=== PATIENT | male | born 1995 | race Caucasian/White ===

== ENCOUNTER 2016-12-03 15:52 | Emergency (ER) | payer OTHER ==
[~2016-12-03] VITALS: Ht 172.7 cm; Wt 87.3 kg
[2016-12-03 16:01] VITALS: TEMP 36.6; Ht 172.7 cm; Wt 87.3 kg
[2016-12-03] MEDS ORDERED: PROPARACAINE HCL 0.5% OP SOLN 15 ML BTL ONE (17:13)
[2016-12-03 17:47] VITALS: BP 144/71; PULSE 85; O2SAT 98
--- NOTE | 2016-12-04 00:54 | EMERGENCY ROOM VISIT NOTE ---
History First contact with patient: 16:29 Chief Complaint: EYE ASSESSMENT Stated Complaint: METAL SHARD IN EYE History of Present Illness The patient is a 21 year old male who presents to the Emergency Room with complaints of a possible foreign body in the left eye. The patient was pressure washing at work around noon time when he noticed the discomfort. The eye was irrigated with persistent discomfort. He denies any significant photophobia or blurred vision, and rates his discomfort a 6 out of 10. Tetanus immunization is up-to-date. Review of Systems 10 system review was performed and was negative except for pertinent positives and negatives as indicated in history of present illness Past Medical/Surgical History Medical Problems: (1) No significant past medical history Surgical Problems: (1) No history of previous surgery Family History Unremarkable Social History Smoking Status: Never Smoker Alcohol Use: occasionally Marital Status: single Occupation Status: employed Current/Historical Medications No Active Prescriptions or Reported Meds Allergies Coded Allergies: No Known Allergies (Unverified , 12/03/16) Physical Exam Vital Signs Date Time Temp Pulse Resp B/P (MAP) Pulse Ox O2 Delivery O2 Flow Rate FiO2 12/03/16 17:47 85 18 144/71 98 Room Air 12/03/16 16:01 36.6 81 16 147/80 96 Room Air Right Eye Acuity: 20/10 Left Eye Acuity: 20/20 Pain Rating (0-10): 2.0 Physical Exam CONSTITUTIONAL: Healthy and well nourished. Alert and oriented X 3 with positive affect. Patient does not appear in any acute distress. HEENT: Normocephalic, atraumatic. Pupils equal, round and reactive. Examination of the left eye shows mild conjunctival injection. No mucopurulent or bloody drainage noted. No soft tissue injury of the face or eyelids. NECK: Full active range of motion without discomfort. INTEGUMENTARY: No rash or other significant dermatologic conditions noted. NEUROLOGIC: Cranial nerves II-XII grossly intact. No focal neurologic deficits noted. Medical Decision & Procedures Procedure Slit lamp and fluorescein exam were performed under local anesthesia. 2 drops of Alcaine were instilled into the left eye. Slit lamp exam shows evidence for a retained metallic foreign body at the border of the cornea at 1:00. I did attempt to remove it with a sterile swab without success. An [place] brush was then further used to debride the foreign body. There was no residual rust ring. Fluorescein exam showed no additional corneal abrasions. Negative Bennie test at the site of foreign body removal. Negative hyphema. ED Course Patient history and physical exam were performed. Nurse's notes were reviewed. Visual acuity was reviewed and noted. Slit lamp and fluorescein exam showed a metallic corneal foreign body that was successfully treated using an [place] brush. The patient was encouraged to intermittently apply a cool compress to the eye as needed for comfort. Ibuprofen or Tylenol if needed for additional relief. He was instructed to seek further ophthalmology follow-up with any persistent pain. The patient was happy with plan of care, and denied any discomfort at the conclusion of my exam. Medical Decision Impression Primary Impression: Foreign body of left cornea Additional Impression: Work related injury Departure Information Dispostion Home / Self-Care Condition GOOD Prescriptions No Active Prescriptions or Reported Meds Referrals Jitendra Thakur D.O. (PCP) Forms HOME CARE DOCUMENTATION FORM, IMPORTANT VISIT INFORMATION Patient Instructions My [facility] Additional Instructions Apply a cool compress/washcloth for relief. Ibuprofen 800 mg and/or Tylenol 1000 mg every 8 hours. You may also alternate these medications for more effective pain relief: Ibuprofen --4 HRS--> Tylenol --4 HRS--> ibuprofen --4 HRS--> Tylenol .... Return for any persistent or worsening symptoms. Problem Qualifiers Primary Impression: Foreign body of left cornea Encounter type: initial encounter Qualified Codes: T15.02XA - Foreign body in cornea, left eye, initial encounter
== END 2016-12-03 17:47 | disposition home or self-care (01) ==
LOC: C.EDB 15:54 → C.EDD 17:47
DX: T15.02XA Foreign body in cornea, left eye, initial encounter (principal); X58.XXXA Exposure to other specified factors, initial encounter; Y92.89 Other specified places as the place of occurrence of the external cause; Y99.0 Civilian activity done for income or pay